=== PATIENT | male | born 1950 | race Caucasian/White ===

== ENCOUNTER 2018-04-13 04:08 | Outpatient (CLI) | payer MEDICARE, SELFPAY | END 2018-04-13 04:09 | PROVIDERS: PCP Family Medicine; Visit Provider Family Medicine | DX: R06.02 Shortness of breath (principal); Z53.9 Procedure and treatment not carried out, unspecified reason ==

== ENCOUNTER 2019-01-25 09:13 | Outpatient (REF) | payer MEDICARE, SELFPAY ==
[2019-01-25 13:35] LABS: Anion Gap 11.9 mmol/L (3-11); BUN 17 mg/dL (7-18); CO2 26.1 mmol/L (21.0-32.0); CREATININE 0.88 mg/dL (0.70-1.30); Chloride 102 mmol/L (98-107); Cholesterol 218 mg/dL (50-200); Glucose 96 mg/dL (70-100); HDL Cholesterol 41 mg/dL (40-60); LDL CHOLESTEROL 139 mg/dL (<100); Potassium 4.4 mmol/L (3.5-5.1); Sodium 140 mmol/L (136-145); Triglyceride 191 mg/dL (30-150)
== END 2019-01-25 09:33 ==
LOC: NCHCN 09:13
PROVIDERS: PCP Family Medicine; Visit Provider Family Medicine
DX: E78.5 Hyperlipidemia, unspecified (principal); R73.09 Other abnormal glucose; I10 Essential (primary) hypertension; M75.42 Impingement syndrome of left shoulder
CPT/HCPCS: 80048; 80061; 83721

== ENCOUNTER 2020-07-01 20:42 | Emergency (ER) | payer MEDICARE, SELFPAY ==
[2020-07-01] VITALS (8 sets, daily range): BP systolic 123–142; BP diastolic 65–116; PULSE 60–79; RESP 15–17; TEMP 36.4; O2SAT 91–97
--- NOTE | 2020-07-01 20:00 | RT.EKG_ITS ---
APPROVED REPORT Exam: Resting ECG Patient Location: E HR:72 bpm ECG Measurements Heart Rate 72 AXIS SD 173 P 59 QRSd 111 QRS -3 QT 414 T 36 QTc 453 Conclusion Sinus rhythm...normal P axis, V-rate 60- 99 Consider inferior infarct...Q >35mS in II III aVF
--- NOTE | 2020-07-01 20:30 | W.ED.GENAD ---
Discharge Plan Disposition Patient Disposition: HOME Condition: Stable Discharge Details Clinical Impression: Altered mental status, Alcohol intoxication Primary Care Provider: Andre Slater ED Provider: Flako Erickson Home Meds and New Rx's Prescriptions: Continued polyethylene glycol 3350 [Miralax] 17 GM powder in packet 255 gm PO for colonoscopy Qty: 1 RF: 0 bisacodyl [Dulcolax (bisacodyl)] 5 MG tablet,delayed release (DR/EC) 5 mg PO ONCE Qty: 4 RF: 0 aspirin [Aspir-81] 81 MG tablet,delayed release (DR/EC) 81 mg PO DAILY RF: 0 losartan 100 MG tablet 100 mg PO DAILY RF: 0 Discharge Instructions Instructions: Alcohol Intoxication (ED) Additional Instructions: limit alcohol use to 1-2 drinks per day follow up with your primary care provider within 1-2 weeks if you feel more ill, have difficulty breathing or severe pain return to the emergency department Medical Decision Making 70 yo male with male comes in with ems with altered mental status. Info obtained from ems and on the phone from his Genet. Apparently he has had a lot of stress due to their sick old dog per the . Today he was very stressed over the election and family states he felt it was the end of the world if President Nuno didn't get reelected. He then started to make statements such as it doesn't matter if I live anyway and went to his room and his went to check on him and he was slurring his words. The thought he was drunk though he doesn't drink routinely and doesn't use drugs and denies having any drugs in the house he could have had access to. She told him she was calling 911 and he said no to her clearly. When EMS arrived he had a bgfs over 100 would open his eyes to his name but wouldn't say any words or follow commands. Arrives HD stable. PERRL. When I lift his extremities they fall to the bed but if I lift his arm over his chest and drop it he is able to move it to the side so it doesn't land on his chest. No signs of trauma, soft nontender abdomen. Suspect this could be stress reaction, catatonia but will evaluate for drug overdose and also electrolyte abnormalities as well as obtain ct head/c spine as reports ramírez fuentes before she checked on him and thinks he may have had a fall. labs unremarkable accept for alcohol level of 120. Spoke with Genet who states he rarely drinks and may have wine on special occasions. Suspect he had alcohol intoxication as primary cause of his altered mental status and fall earlier. His CT is unremarkable as well. He is now awake and talking, caox4 though slowly answers questions but has no complaints. He doesn't remember making the vague statements about not wanting to live earlier tonight and denies si/hi now. Spoke with and she has no concerns about his safety knowing now he was intoxicated earlier. He has no focal motor or sensation deficits. Will d/c home and advised to f/u with pcp limit alcohol intake and return precautions given pt able to ambulate on his own with steady gait on discharge. Differential Diagnosis Differential Diagnosis: acute stress reaction, ich, drug overdose, alcohol poisoning Imaging Data Radiologic Study: Attestation: I personally reviewed and interpreted this imaging study as follows: Imaging: CT Scan Radiologist's impression: IMPRESSION: 1. No acute intracranial abnormality. 2. Mild paranasal sinus disease No evidence for acute fracture within the cervical spine Lab Data Lab results reviewed: Yes I reviewed the patient's lab results. ECG Data Attestation: I personally reviewed and interpreted this ECG (s) as follows: Prior ECG tracings: not available for review Interpretation: sinus rhythm, rate of 72, qtc 453, no acute st t wave ischemic findings HPI General Mode of arrival: EMS. Date/Time Provider Initiated Documentation: 07/01/20 22:00. Limitations to Documentation: no limitations. Information obtained by: patient. History of Present Illness 70 year old M presents to the emergency department with the chief complaint of altered mental status, described as moderate, Patient started experiencing this minute(s) (2) and it has been constant. No relieving factors improve symptom(s), No exacerbating factors reported . Patient did receive the following treatments prior to arrival, none Related Data Home Medications Medication Instructions Recorded Confirmed aspirin [Aspir-81] 81 mg PO DAILY 04/08/14 11/30/16 losartan 100 mg PO DAILY 04/08/14 11/30/16 bisacodyl [Dulcolax (bisacodyl)] 5 mg PO ONCE #4 tab 11/07/16 polyethylene glycol 3350 [Miralax] 255 gm PO for colonoscopy #1 gm 11/07/16 Allergies Allergy/AdvReac Type Severity Reaction Status Date / Time No Known Allergies Allergy Unverified 11/30/16 06:47 General Stated Complaint: [facility] SILVIANO: 2 Review of Systems Unobtainable due to mental status [facility] Surgical History (Updated 12/12/16 @ 09:37 by Selin Briseno) Colonoscopy - IV Sedation (11/30/16) Social History Smoking/Tobacco Use Status: Former Tobacco Use Smoking risk assessment performed?: Yes Drug use: Never Exam Const General: other (eyes open to his name but doesn't talk) Orientation: other (opens eyes to voice doesn't talk) HENMT Head: normal to inspection Ears: external ears normal General nose exam: external nose normal Mouth: moist mucous membranes Eyes General: appearance normal, both eyes and all related structures Neck Neck: normal visual inspection Resp Effort & Inspection: normal respiratory effort and able to speak in complete sentences Cardio Rate: regular rate GI Inspection: normal to inspection Skin General skin exam: no rashes or lesions noted Neuro General: other (opens eyes to voice, doesn't talk or follow commands) Cranial Nerves: PERRL Extrem General: normal to inspection Psych Mental Status: mental status grossly normal Course Vital Signs Vital signs: Vital Signs Temperature 36.4 C L 07/01/20 20:23 Pulse 68 07/01/20 20:23 Respiratory Rate 17 07/01/20 20:23 Blood Pressure 141/96 H 07/01/20 20:23 Pulse Oximetry 96 07/01/20 20:23 Temperature 36.4 C L 07/01/20 20:23 Temperature Source Skin 07/01/20 20:23 Pulse 68 07/01/20 20:23 Respiratory Rate 17 07/01/20 20:23 Blood Pressure 141/96 H 07/01/20 20:23 Pulse Oximetry 96 07/01/20 20:23 Oxygen Delivery Method Room Air 07/01/20 20:23 Oxygen Flow Rate 0 07/01/20 20:23
[2020-07-01 20:40] LABS: BE (Venous) -3 mmol/L (-2-3); HCO3 (Venous) 23 mmol/L (23-28); O2 Sat (Venous) 87 %; TCO2 (Venous) 20 mmol/L (24-29); pCO2 (Venous) 42 mmHg (41-51); pH (Venous) 7.34 (7.31-7.41); pO2 (Venous) 59 mmHg
[2020-07-01 20:41] LABS: Abs Immature Grans 0.03 10^3/uL (0.0-0.06); Absolute Basophil Count 0.06 10^3/uL (0.0-0.2); Absolute Eosinophil Count 0.19 10^3/uL (0.0-0.7); Absolute Lymphocyte Count 2.49 10^3/uL (1.2-3.4); Absolute Monocyte Count 0.76 10^3/uL (0.1-0.8); Absolute Neutrophil Count 5.97 10^3/uL (1.2-6.7); Basophils % 0.6; HCT 47.6 % (40.0-50.0); HGB 15.6 g/dL (13.5-17.5); Immature Grans % 0.3; Lymphocytes % 26.2; MCH 30.4 pg (27.0-33.0); MCHC 32.8 % (32.0-36.0); MCV 92.8 fL (80-95); MPV 9.4 fL (8.0-11.0); Neutrophils % 62.9; Nucleated RBC 0 %; Platelet Count 366 10^3/uL (130-400); RBC 5.13 10^6/uL (4.36-5.78); RDW 12.7 % (11.8-14.1); RDW-SD 43.6 fL
[2020-07-01 20:42] LABS: Bilirubin Negative (Negative); Blood Trace-intact (Negative); Clarity Clear (Clear); Glucose Negative (Negative); Ketones Negative (Negative); Leukocyte Esterase Negative (Negative); Nitrite Negative (Negative); Urobilinogen 0.2 EU/dL (Up TO 0.2); pH 5.5 (5-8)
[2020-07-01 20:54] LABS: PTT Activated 22.3 sec (21.0-27.5); Prothrombin Time 9.9 sec (9.3-11.0)
[2020-07-01 21:01] LABS: Salicylate < 2.8 mg/dL (2.8-20.0)
[2020-07-01 21:04] LABS: ALT 34 U/L (16-63); AST 33 U/L (15-37); Albumin 3.6 g/dL (3.4-5.0); Alkaline Phosphatase 79 U/L (46-116); Anion Gap 12.6 mmol/L (3-11); BUN 14 mg/dL (7-18); Bacteria Negative HPF (Negative); Bilirubin, Total 0.3 mg/dL (0.2-1.0); C & S Indicated? No; CO2 23.4 mmol/L (21.0-32.0); CREATININE 0.92 mg/dL (0.70-1.30); Calcium 8.3 mg/dL (8.5-10.1); Casts Negative LPF (Negative); Chloride 105 mmol/L (98-107); Crystals Negative HPF (Negative); ETHANOL BLOOD 124.2 mg/dL (<3); Epithelial Cells Rare HPF (Negative); Glucose 103 mg/dL (74-106); Mucus Negative (Negative); Potassium 3.7 mmol/L (3.5-5.1); RBC 0-2 HPF (0-2); Sodium 141 mmol/L (136-145); Total Protein 7.8 g/dL (6.4-8.2); WBC 0-2 HPF (0-5)
[2020-07-01 21:05] LABS: Acetaminophen < 2 ug/mL (10-30); Troponin I < 0.05 ng/mL (<0.06)
[2020-07-01 21:06] LABS: Magnesium 2.3 mg/dL (1.8-2.4); TSH (W/Ref FT4) 1.02 uIU/mL (0.36-3.74)
[2020-07-01 21:13] LABS: Bilirubin, Direct 0.09 mg/dL (0.00-0.20)
[2020-07-01 21:17] LABS: Carboxyhemoglobin 0.5 %
--- NOTE | 2020-07-01 21:26 | DI.CT_ITS ---
EXAM: CT HEAD CERVICAL SPINE WO CLINICAL HISTORY: altered mental status, fall. TECHNIQUE: Imaging Protocol: Axial computed tomography images with coronal and sagittal reformatted images were created and reviewed COMPARISON: No exams were available for comparison FINDINGS: CT Head: Ventricles and Extra axial spaces: Normal in size and morphology for the patient's age. Hemorrhage: None. Cerebral parenchyma: Normal. Midline shift: None. Brainstem/Cerebellum: Normal. Calvarium: Normal. Visualized Paranasal sinuses/Mastoids: Mild mucosal thickening seen in the maxillary sinuses and a fe w ethmoid air cells. Mucous retention cysts or polyps are seen in the maxillary sinuses. The remain ing sinuses are clear. Soft Tissues: Unremarkable. CT Cervical Spine: Bones: No acute fracture or subluxation. Moderate degenerative changes are present throughout the cer vical spine. Soft Tissues: Unremarkable. Lung Apices: Clear. IMPRESSION: 1. No acute intracranial process. 2. No acute fracture or subluxation in the cervical spine. RADIATION DOSE DELIVERED: 1,389.4mGy.cm Total DLP DATA REPOSITORY: All CT scans at this facility are submitted to the National Radiology Data Registry (NRDR) Dose Index Registry (DIR) with the [employer] ([employer]). RADIATION OPTIMIZATION: All CT scans at this facility use at least one of these dose optimization te chniques: automated exposure control; mA and/or kV adjustment per patient size (includes targeted exa ms where dose is matched to clinical indication); or iterative reconstruction.
--- NOTE | 2020-07-01 21:42 | DI.VRAD_ITS ---
PROCEDURE INFORMATION: Exam: CT Head Without Contrast Exam date and time: 07/01/2020 8:28 PM Age: 70 years old Clinical indication: Injury or trauma; Blunt trauma (contusions or hematomas); Consciousness not specified; Injury date: 07/01/20; Injury details: Fall, altered mental status TECHNIQUE: Imaging protocol: Computed tomography of the head without contrast. Radiation optimization: All CT scans at this facility use at least one of these dose optimization techniques: automated exposure control; mA and/or kV adjustment per patient size (includes targeted exams where dose is matched to clinical indication); or iterative reconstruction. Other technique: STROKE PROTOCOL was implemented. COMPARISON: No relevant prior studies available. FINDINGS: Brain: Normal. No hemorrhage. Unremarkable white matter. No mass effect. Cerebral ventricles: No ventriculomegaly. Bones/joints: Unremarkable. No acute fracture. Paranasal sinuses: Mild polypoid mucosal thickening within the bilateral maxillary and ethmoid sinuses. The paranasal sinuses are otherwise well aerated. Mastoid air cells: Minimal mucosal thickening within the inferior right mastoid air cells. The mastoid air cells are otherwise well aerated. Soft tissues: Unremarkable. IMPRESSION: 1. No acute intracranial abnormality. 2. Mild paranasal sinus disease. ASSESSMENT: ASPECTS ([place] Stroke Program Early CT Score) is 10. PROCEDURE INFORMATION: Exam: CT Cervical Spine Without Contrast Exam date and time: 07/01/2020 8:28 PM Age: 70 years old Clinical indication: Injury or trauma; Blunt trauma (contusions or hematomas); Consciousness not specified; Injury date: 07/01/20; Injury details: Fall, altered mental status TECHNIQUE: Imaging protocol: Computed tomography images of the cervical spine without contrast. Radiation optimization: All CT scans at this facility use at least one of these dose optimization techniques: automated exposure control; mA and/or kV adjustment per patient size (includes targeted exams where dose is matched to clinical indication); or iterative reconstruction. COMPARISON: No relevant prior studies available. FINDINGS: Bones/joints: No acute fracture. Normal alignment. Discs/Spinal canal/Neural foramina: Diffuse cervical spondylosis, most pronounced at C4-C5, C5-C6, and C6-C7, where varying degrees of moderate to severe neural foraminal stenosis are present. Mild spinal canal narrowing is also seen at these levels. Soft tissues: Unremarkable. Lungs: Lung apices are normal. IMPRESSION: No evidence for acute fracture within the cervical spine. Dictated and Authenticated by: Aviva Schumacher MD. Ordering:LUIS Arriola MD
[2020-07-01 22:03] LABS: *AMPHETAMINES SCREEN URINE Negative (Negative); *BARBITURATES SCREEN URINE Negative (Negative); *BENZODIAZEPINES SCREEN URINE Negative (Negative); Cannabinoids THC Negative (Negative); Cocaine Screen,Urine Negative (Negative); METHADONE URINE SCREEN Negative (Negative); OPIATES URINE SCREEN Negative (Negative)
[2020-07-01 22:04] LABS: Tricyclic Antidepressants Negative (Negative)
== END 2020-07-01 22:30 | disposition home or self-care (01) ==
PROVIDERS: Emergency Provider Emergency Medicine; PCP Family Medicine
DX: R41.82 Altered mental status, unspecified (principal); F10.120 Alcohol abuse with intoxication, uncomplicated; Y90.6 Blood alcohol level of 120-199 mg/100 ml
CPT/HCPCS: 36415; 51701; 80053; 80307; 82375; 82805; 93005; 99285; 70450; 72125; 80320; 80329; 81003; 81015; 82248; 83605; 83735; 84443; 84484; 85025; 85610; 85730; 93010; 99284

== ENCOUNTER 2021-10-29 13:42 | Outpatient (REF) | payer MEDICARE, SELFPAY ==
[2021-10-29 16:06] LABS: ESR 33 mm/hr (0-20)
[2021-10-29 16:17] LABS: ALT 35 U/L (16-63); AST 20 U/L (15-37); Alkaline Phosphatase 88 U/L (46-116); Anion Gap 9.3 mmol/L (3-11); BUN 13 mg/dL (7-18); Bilirubin, Total 0.5 mg/dL (0.2-1.0); CO2 25.7 mmol/L (21.0-32.0); Calcium 9.4 mg/dL (8.5-10.1); Chloride 103 mmol/L (98-107); Glucose 106 mg/dL (74-106); Potassium 4.3 mmol/L (3.5-5.1); Sodium 138 mmol/L (136-145); Total Protein 7.9 g/dL (6.4-8.2)
[2021-10-29 16:41] LABS: Hemoglobin A1C 5.9 % (<5.7)
== END 2021-10-29 13:43 | disposition home or self-care (01) ==
LOC: NCHCN 13:42
PROVIDERS: PCP Family Medicine; Visit Provider Family Medicine
DX: R73.03 Prediabetes (principal); R51.9 Headache, unspecified; I10 Essential (primary) hypertension; E78.5 Hyperlipidemia, unspecified
CPT/HCPCS: 80053; 85652; 83036

== ENCOUNTER 2021-12-28 19:37 | Outpatient (REF) | payer MEDICARE, SELFPAY ==
[2021-12-28 22:49] LABS: PSA, Diagnostic 0.5 ng/mL (<=4.5)
== END 2021-12-28 19:38 | disposition home or self-care (01) ==
LOC: NCHCN 19:37
PROVIDERS: PCP Family Medicine; Visit Provider Family Medicine
DX: N40.1 Benign prostatic hyperplasia with lower urinary tract symptoms (principal)
CPT/HCPCS: 84153